=== PATIENT | female | born 1970 | race Caucasian/White ===

== ENCOUNTER 2025-07-10 22:48 | Emergency (ER) | payer MEDICAID, SELFPAY ==
[2025-07-10 22:58] VITALS: PULSE 103; RESP 18; TEMP 36.4; O2SAT 100; BMI 31.7
--- OUTSIDE RECORDS SUMMARY | 2025-07-10 22:59 | XMS_ITS | Encounter Summary ---
Author Organization [employer] [facility] Address [address] [place] [address] Care Team Providers Care Store Leader Name Role Phone Magali Camacho DO Primary Care Provider [phone] Encounter Details Date Type Department Care Team (Latest Contact Info) Description 03/29/2002 Outpatient Historical [facility] Kendall Moody MD [address] [place] [address] JOINT PAIN-L/LEG (Primary Dx) Social History Tobacco Use Types Packs/Day Years Used Date Smoking Tobacco: Never Assessed Comments Unknown Sex and Gender Information Value Date Recorded Sex Assigned at Not on file 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
--- OUTSIDE RECORDS SUMMARY | 2025-07-10 22:59 | XMS_ITS | Encounter Summary ---
Author Organization [employer] Address [address] [facility] Attn: [place] [address] Care Team Providers Care Clinical Rehabilitation Coordinator Name Role Phone Magali Camacho DO Primary Care Provider Encounter Details Date Type Department Care Team (Late st Contact Info) Description 05/07/2002 Outpatient Historical Kendall Moody MD [address] [place] [phone] Social History Tobacco Use Types Packs/Day Years Used Date Smoking Tobacco: Never Assessed Comments Unknown Sex and Gender Information Value Date Recorded Sex Assigned at Not on file 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
--- OUTSIDE RECORDS SUMMARY | 2025-07-10 22:59 | XMS_ITS | Encounter Summary ---
Author Organization [employer] Address [address] [facility] Attn: [place] [address] Care Team Providers Care Engraving Operator Name Role Phone Magali Camacho DO Primary Care Provider [phone] Encounter Details Date Type Department Care Team (Late st Contact Info) Description 05/19/2002 Outpatient Historical Kendall Moody MD [address] [place] [phone] Social History Tobacco Use Types Packs/Day Years Used Date Smoking Tobacco: Never Assessed Comments Unknown Sex and Gender Information Value Date Recorded Sex Assigned at Not on file Legal Sex Female 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
--- OUTSIDE RECORDS SUMMARY | 2025-07-10 22:59 | XMS_ITS | Encounter Summary ---
Author Organization [facility] Address [address] [place] [address] Care Team Providers Care Network Communications Engineer Name Role Phone Magali Camacho DO Primary Care Provider [phone] Encounter Details Date Type Department Care Team (Latest Contact Info) Description 03/19/2004 Outpatient Historical [facility] [address] [phone] Santi Michel MD [address] [phone] VAGINITIS NOS (Primary Dx) Social History Tobacco Use Types Packs/Day Years Used Date Smoking Tobacco: Never Assessed Comments Unknown Sex and Gender Information Value Date Recorded Sex Assigned at Not on file 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
--- OUTSIDE RECORDS SUMMARY | 2025-07-10 22:59 | XMS_ITS | Encounter Summary ---
Author Organization [facility] Address [address] [place] [address] Care Team Providers Care Physical Therapy Attendant Name Role Phone Magali Camacho DO Primary Care Provider [phone] Encounter Details Date Type Department Care Team (Latest Contact Info) Description 03/13/2004 Outpatient Historical [facility] [address] [phone] Santi Michel MD [address] [phone] MENSTRUAL DISORDER NEC (Primary Dx); FEMALE GENITAL SYMPTOMS NOS Social History Tobacco Use Types Packs/Day Years Used Date Smoking Tobacco: Never Assessed Comments Unknown Sex and Gender Information Value Date Recorded Sex Assigned at Not on file 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
--- OUTSIDE RECORDS SUMMARY | 2025-07-10 22:59 | XMS_ITS | Encounter Summary ---
Author Organization [employer] [facility] Address [address] [place] [address] Care Team Providers Care Shrinking Machine Operator Name Role Phone Magali Camacho DO Primary Care Provider Encounter Details Date Type Department Care Team (Latest Contact Info) Description 06/07/2002 Outpatient Historical [facility] Kendall Moody MD [address] [place] [address] JOINT PAIN-L/LEG (Primary Dx) Social History Tobacco Use Types Packs/Day Years Used Date Smoking Tobacco: Never Assessed Comments Unknown Sex and Gender Information Value Date Recorded Sex Assigned at Not on file Legal 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
--- OUTSIDE RECORDS SUMMARY | 2025-07-10 22:59 | XMS_ITS | Clinical Summary ---
Author Organization [employer] Address [address] [facility] [address] [place]: [place] [address] Care Team Providers Care Sports Leadership Instructor Name Role Phone Magali Camacho Primary Care Provider Allergies No known active allergies Medications ALPRAZolam (XANAX) 0.25 mg tabletIndicatio ns:Anxiety Take 1 Tablet (0.25 mg) by mouth nightly as needed for Anxiety Fax to [place]. 30 Tablet 0 12/15/2018 Active cloNIDine HCL (CATAPRES) 0.1 mg tabletIndicatio ns:Essential hypertension,Op ioid abuse Take 1 Tablet (0.1 mg) by mouth 3 times daily. 90 Tablet 1 12/15/2018 Active Active Problems Problem Noted Date Diagnosed Date Essential hypertension 12/15/2018 Anxiety 12/15/2018 Opioid abuse 12/15/2018 Family History Relation Name Status Comments Father Alive Mother Alive Social History Tobacco Use Types Packs/Day Years Used Date Smoking Tobacco: Every Day Cigarettes Smokeless Tobacco: Never Alcohol Use Standard Drinks/Week Comments No 0 (1 standard drink = 0.6 oz pur e alcohol) Comments Unknown Sex and Gender Information Value Date Recorded Sex Assigned at Not on file Legal Sex Female 12:12 AM MANAGER SERVICE DESK Gender Identity Not on file Sexual Orientation Not on file Last Filed Vital Signs Vital Sign Reading Time Taken Comments Blood Pressure 168/80 12/15/2018 1:44 PM CDT Pulse 113 12/15/2018 1:44 PM CDT Temperature 37.2 C (99 F) 12/15/2018 1:44 PM CDT Respiratory Rate 18 12/15/2018 1:44 PM CDT Oxygen Saturation - - Inhaled Oxygen Concentration - - Weight 78.4 kg (172 lb 12.8 oz) 12/15/2018 1:44 PM CDT Height 162.6 cm (5' 4 ) 12/15/2018 1:44 PM CDT Body Mass Index 29.66 12/15/2018 1:44 PM CDT Plan of Treatment Health Maintenance Due Date Last Done Comments DTAP/TDAP/TD VACCINES (1 - Tdap) 1988 HEPATITIS B VACCINES (1 of 3 - 19+ 3-dose series) 07/24 HPV/Cotest (21-29) 1990 CERVICAL CANCER SCREENING 1999 HPV/Cotest (30-65) 1999 PAP SMEAR 1999 BREAST CANCER SCREENING 2009 COLORECTAL SCREENING 2014 Colorectal Cancer Screening 2014 FIT-DNA Q 3 years 2014 FIT/FOBT Q 1 year 2014 Flex Sig/CT Colonography Q 5 years 2014 ZOSTER VACCINE (1 of 2) 2019 INFLUENZA VACCINE (#1) 2025 Care Teams Sports Leadership Instructor Relationship Specialty Start Date End Date Magali Camacho DO [address] [place] [phone] PCP - General Family Practice 12/15/18
--- OUTSIDE RECORDS SUMMARY | 2025-07-10 22:59 | XMS_ITS | Clinical Summary ---
Author Organization [facility] Address [address] [facility] [address] Care Team Providers Care Administrative Resident Name Role Phone Magali Camacho Primary Care Provider Allergies No known active allergies Medications cloNIDine HCl (CATAPRES) 0.1 mg tabletIndicatio ns:Essential hypertension,Op ioid abuse Take 1 Tablet (0.1 mg) by mouth 3 times daily. 90 Tablet 1 12/15/2018 Active ALPRAZolam (XANAX) 0.25 mg tabletIndicatio ns:Anxiety Take 1 Tablet (0.25 mg) by mouth nightly as needed for Anxiety Fax to [place]. 30 Tablet 12/15/2018 Active Active Problems Problem Noted Date Diagnosed Date Essential hypertension 12/15/2018 Anxiety 12/15/2018 Opioid abuse 12/15/2018 Family History Relation Name Status Comments Father Alive Mother Alive Social History Tobacco Use Types Packs/Day Years Used Date Smoking Tobacco: Every Day Cigarettes Smokeless Tobacco: Never Tobacco Cessation:Ready to Q uit: No Alcohol Use Standard Drinks/Week Comments No 0 (1 standard drink = 0.6 oz pur e alcohol) Comments No Sex and Gender Information Value Date Recorded Sex Assigned at Not on file Legal Sex Female 6:34 AM MANAGER HOSPITALITY Gender Identity Not on file Sexual Orientation Not on file Last Filed Vital Signs Vital Sign Reading Time Taken Comments Blood Pressure 168/80 12/15/2018 1:44 PM CDT Pulse 113 12/15/2018 1:44 PM CDT Temperature 37.2 C (99 F) 12/15/2018 1:44 PM CDT Respiratory Rate 18 12/15/2018 1:44 PM CDT Oxygen Saturation 98% 12/15/2018 1:44 PM CDT Inhaled Oxygen Concentration - - Weight 78.4 kg (172 lb 12.8 oz) 12/15/2018 1:44 PM CDT Height 162.6 cm (5' 4 ) 12/15/2018 1:44 PM CDT Body Mass Index 29.66 12/15/2018 1:44 PM CDT Plan of Treatment Health Maintenance Due Date Last Done Comments DTAP/TDAP/TD VACCINES (1 - Tdap) 1988 HEPATITIS B VACCINES (1 of 3 - 19+ 3-dose series) 07/24 Preventative Visit-Managed Medicaid 1988 HPV/Cotest (21-29) 1990 CERVICAL CANCER SCREENING 1999 HPV/Cotest (30-65) 1999 PAP SMEAR 1999 BREAST CANCER SCREENING 2009 COLORECTAL SCREENING 2014 Colorectal Cancer Screening 2014 FIT-DNA Q 3 years 2014 FIT/FOBT Q 1 year 2014 Flex Sig/CT Colonography Q 5 years 08/16/20142001 ZOSTER VACCINE (1 of 2) 2019 INFLUENZA VACCINE (#1) 2025 Insurance [facility] MEDICAID Care Teams Administrative Resident Relationship Specialty Start Date End Date Magali Camacho DO [address] [place] [address] PCP - General Family Practice 12/15/18
--- OUTSIDE RECORDS SUMMARY | 2025-07-10 22:59 | XMS_ITS | Encounter Summary ---
Author Organization [facility] Address [address] [place] [address] Care Team Providers Care Golf Course Designer Name Role Phone Magali Camacho DO Primary Care Provider Encounter Details Date Type Department Care Team (Latest Contact Info) Description 03/13/2004 Outpatient Historical [facility] Medicine [address] [phone] Santi Michel MD [address] [phone] FEMALE GENITAL SYMPTOMS NOS (Primary Dx) Social History Tobacco Use Types Packs/Day Years Used Date Smoking Tobacco: Never Assessed Comments Unknown Sex and Gender Information Value Date Recorded Sex Assigned at Not on file Legal 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
--- OUTSIDE RECORDS SUMMARY | 2025-07-10 22:59 | XMS_ITS | Encounter Summary ---
Author Organization [employer] [facility] Address [address] [place] [address] Care Team Providers Care Publishing Specialist Name Role Phone Magali Camacho DO Primary Care Provider Encounter Details Date Type Department Care Team (Latest Contact Info) Description 04/26/2002 Outpatient Historical [facility] Kendall Moody MD [address] [place] [address] JOINT PAIN-L/LEG (Primary Dx) Social History Tobacco Use Types Packs/Day Years Used Date Smoking Tobacco: Never Assessed Comments Unknown Sex and Gender Information Value Date Recorded Sex Assigned at Not on file Legal Sex Female 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
--- OUTSIDE RECORDS SUMMARY | 2025-07-10 22:59 | XMS_ITS | Encounter Summary ---
Author Organization [facility] Address [address] [place] [address] Care Team Providers Care Washing Machine Installer Name Role Phone Magali Camacho DO Primary Care Provider Encounter Details Date Type Department Care Team (Latest Contact Info) Description 06/29/2002 Outpatient Historical [facility] Family Medicine [address] [place] [phone] Pete Nagy MD Rectal/anal hemorrhage (Primary Dx) Social History Tobacco Use Types Packs/Day Years Used Date Smoking Tobacco: Never Assessed Comments Unknown Sex and Gender Information Value Date Recorded Sex Assigned at Not on file 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
--- OUTSIDE RECORDS SUMMARY | 2025-07-10 22:59 | XMS_ITS | Encounter Summary ---
Author Organization [facility] Address [address] [place] [address] Care Team Providers Care Furnace And Wash Equipment Operator Name Role Phone Magali Camacho DO Primary Care Provider Encounter Details Date Type Department Care Team (Latest Contact Info) Description 03/14/2004 Outpatient Historical [facility] Services [address] [place] [phone] Santi Michel MD [address] [place] [phone] OVARIAN CYST NEC/NOS (Primary Dx) Social History Tobacco Use Types Packs/Day Years Used Date Smoking Tobacco: Never Assessed Comments Unknown Sex and Gender Information Value Date Recorded Sex Assigned at Not on file Legal Sex Female 6:34 AM WAREHOUSE DISTRIBUTION MANAGER Gender Identity Not on file Sexual Orientation Not on file documented as of this encounter Plan of Treatment Not on file documented as of this encounter Visit Diagnoses Diagnosis Other and unspecified ovarian cyst- Primary documented in this encounter Care Teams Furnace And Wash Equipment Operator Relationship Specialty Start Date End Date Magali Camacho DO [address] [place] [address] PCP - General Family Practice 12/15/18 documented as of this encounter
--- OUTSIDE RECORDS SUMMARY | 2025-07-10 22:59 | XMS_ITS | Encounter Summary ---
Author Organization [facility] Address [address] [place] [address] Care Team Providers Care Fell Cutter Name Role Phone Magali Camacho DO Primary Care Provider Encounter Details Date Type Department Care Team (Latest Contact Info) Description 06/30/2002 Outpatient Historical [facility] Family Medicine [address] [place] [phone] Pete Nagy MD MELENA, BLOOD IN STOOL (Primary Dx) Social History Tobacco Use Types Packs/Day Years Used Date Smoking Tobacco: Never Assessed Comments Unknown Sex and Gender Information Value Date Recorded Sex Assigned at Not on file Legal Sex Female 6:34 AM PYTHON DEVELOPER Gender Identity Not on file Sexual Orientation Not on file documented as of this encounter Plan of Treatment Not on file documented as of this encounter Visit Diagnoses Diagnosis Blood in stool- Primary documented in this encounter Care Teams Fell Cutter Relationship Specialty Start Date End Date Magali Camacho DO [address] [place] [phone] PCP - General Family Practice 12/15/18 documented as of this encounter
--- NOTE | 2025-07-10 23:17 | CTR_ITS ---
PROCEDURE INFORMATION: Exam: CT Abdomen And Pelvis With Contrast Exam date and time: 07/11/2025 12:36 AM Age: 54 years old Clinical indication: Abdominal pain; Localized; Left lower quadrant (llq); Prior surgery; Surgery date: 6+ months; Surgery type: Breast augmentation. Gb. Hysterectomy; C/O llq pain; Additional info: Llq pain, felt a pop, diarrhea TECHNIQUE: Imaging protocol: Computed tomography of the abdomen and pelvis with contrast. Radiation optimization: All CT scans at this facility use at least one of these dose optimization techniques: automated exposure control; mA and/or kV adjustment per patient size (includes targeted exams where dose is matched to clinical indication); or iterative reconstruction. Contrast material: OMNI 350; Contrast volume: 100 ml; Contrast route: INTRAVENOUS (IV); COMPARISON: No relevant prior studies available. RADIATION DOSE METRICS: Total DLP (mGy-cm): 780.33 FINDINGS: Lung bases: The lung bases are clear. Bilateral breast implants are noted. Liver: Normal. No mass. Gallbladder and biliary ducts: Status post cholecystectomy. No ductal dilation. Pancreas: Normal. No ductal dilation. Spleen: Normal. No splenomegaly. Adrenal glands: There is an isodense 1.2 cm left adrenal nodule. No mass. Kidneys and ureters: Normal. No hydronephrosis. Stomach and bowel: There appears to be an anastomosis at the approximate level of the rectosigmoid junction. There is no evidence of bowel obstruction. There is no evidence of acute inflammation. Appendix: No evidence of appendicitis. A normal-appearing appendix is identified. Intraperitoneal space: Unremarkable. No free air. No significant fluid collection. Vasculature: Mild calcific plaque along the course of the distal abdominal aorta is noted. No abdominal aortic aneurysm. Lymph nodes: Unremarkable. No enlarged lymph nodes. Urinary bladder: Unremarkable as visualized. Reproductive: The uterus is absent. No significant adnexal abnormality is noted. Bones/joints: Degenerative disc disease is noted primarily at L5-S1. No acute fracture. Soft tissues: Unremarkable. CT/CT abdomen pelvis w con* [id number] IMPRESSION: 1. There is no evidence of acute abdominopelvic abnormality. 2. There is an isodense 1.2 cm left adrenal nodule. If the patient has no cancer history, then consider follow-up non-emergent adrenal CT or adrenal MRI examination. If the patient has a history of cancer, then consider biopsy or PET/CT. (Reference: Catarina) References: Catarina RIBEIRO, et al. Management of Incidental Adrenal Masses: A White Paper of the ACR Incidental Findings Committee. J Am Dameon Radiol. 2017;14(8):8956-4950. 3. Incidental observations are detailed above.
[2025-07-10 23:41] LABS: Hematocrit 40.6 % (36-47); Hemoglobin 14.10 g/dL (11.27-16.99); Mean Corpuscular HGB Conc 34.7 g/dL (30-55); Mean Corpuscular Hemoglobin 30.7 pg (27-33); Mean Corpuscular Volume 88.3 fl (85-98); Nucleated Red Blood Cells % 0 %; Platelet Count 246 10^3/cmm (157-399); Red Blood Count 4.60 10^6/uL (3.85-5.65); White Blood Count 9.35 10^3/uL (3.29-11.43)
[2025-07-10 23:49] VITALS: RESP 16; O2SAT 95
[2025-07-10] MEDS: ondansetron 2 mg/ML SDV 2 mL 4 MG IVP (23:49)
[2025-07-10] MEDS: morphine 4 mg/mL SDV 1 mL IVP (23:49)
--- NOTE | 2025-07-10 23:51 | ED_ITS ---
HPI - Back Pain/Injury 2 General: Chief Complaint: Back Pain/Injury Stated Complaint: Left Side Pain Time Seen by Provider: 07/10/25 22:50 Source: patient Mode of arrival: ambulatory Limitations: no limitations History of Present Illness: Patient is a 54-year-old female who presents the emergency department complaining of left lower quadrant abdominal pain. She was seen at [facility] earlier this morning, for left lower back pain that radiated around towards her left hip, she states that she received a CT of her lumbar spine there as well as urinalysis but was told both of these tests were normal and she was discharged home. She states that while at home she felt a sudden pop in her left lower quadrant that significantly radiated into her left lower back, and has been having diarrhea as well. No bloody stools. No fevers but she has reported chills. No urinary symptoms. No vomiting but she also notes nausea. She received Toradol at previous ER, states this did not help. Does report a history of degenerative disc disease in her back, notes that this feels different. Her vitals are stable at this time, she is in acute distress from pain. MD elicited complaint: other (LLQ) Onset (ago): day(s) Timing: constant Severity: severe Quality: burning Associated symptoms: Reports abdominal pain and nausea; Deny chills, dysuria, fever(s), urinary urgency or vomiting Related Data Previous Rx's ?Medication ?Instructions ?Recorded hydrocodone 7.5 mg-acetaminophen 1 tab PO Q8H PRN pain #15 tabs 07/11/25 325 mg tablet ondansetron 4 mg disintegrating 4 mg PO TID PRN nausea and 07/11/25 tablet vomiting #30 tabs Allergies Allergy/AdvReac Type Severity Reaction Status Date / Time No Known Allergies Allergy Verified 07/10/25 23:04 Review of Systems 2 General: Reports: 10 or more systems reviewed and unremarkable except in HPI and below Const: Denies: fever(s), chills, change in appetite, change in weight or diaphoresis ENMT: Denies: throat pain or hoarseness Card: Denies: chest pain, palpitations or lightheadedness Resp: Denies: dyspnea, productive cough or wheezing GI: Reports: abdominal pain, nausea and diarrhea; Denies: vomiting, constipation, bloating, change in stool character or hematochezia : Denies: flank pain, difficulty voiding, dysuria, urinary frequency or urinary urgency Musc: Reports: back pain; Denies: neck pain Skin/Breast: Denies: rash or new lesions Neuro: Denies: headache(s) or dizziness Physical Exam 2 Const: COMMON NORMALS: no acute distress, average body habitus, patient oriented x3, no limitations, healthy appearing, alert and well nourished G ENERAL APPEARANCE: cooperative and comfortable ORIENTATION/CONSCIOUSNESS: Yes awake Neck/C-Spine: COMMON NORMALS: full ROM, supple and no meningeal signs Resp: COMMON NORMALS: normal respiratory effort, No retractions, No use of accessory muscles and clear to auscultation bilaterally AUSCULTATION: clear to auscultation bilaterally, no crackles, no rales, no rhonchi and no wheezes Cardio: COMMON NORMALS: regular rate, regular rhythm, No gallops present (Cardio), No clicks present (Cardio), No murmurs present (Cardio), No rub (Cardio) and Peripheral pulses 2+ throughout RATE: regular rate RHYTHM: r egular rhythm PERIPHERAL PULSES: Peripheral pulses 2+ throughout GI: COMMON NORMALS: Normal to inspection, nondistended, normoactive bowel sounds present, Soft to palpation, No hepatosplenomegaly present and no masses AUSCULTATION: Yes normoactive bowel sounds PALPATION: Yes Soft to palpation, Yes Tenderness to palpation present (GI) Details: LLQ, No Guarding due to palpation present (GI), No Rigid due to palpation and Yes No hepatosplenomegaly present RECTAL EXAM: deferred : COMMON NORMALS: Yes no CVA tenderness BLADDER/KIDNEY EXAM: Yes no CVA tenderness Back/Pelvis: COMMON NORMALS: no CVA tenderness, thoracic and lumbar spine normal to inspection, no thoracic nor lumbar tenderness, thoraco-lumbar ROM normal and straight leg raise negative bilaterally Extremity: COMMON NORMALS: normal to inspection and full ROM Neuro: COMMON NORMALS: patient oriented x3, moves all extremities, no focal motor deficits and no sensory deficits noted SENSORIUM/ORIENTATION: Yes alert MENINGEAL SIGNS: Yes no meningeal signs Psych: COMMON NORMALS: mental status grossly normal, cooperative and speech normal SPEECH: Yes normal speech Skin: COMMON NORMALS: no rashes or lesions noted GENERAL SKIN EXAM: no rashes or lesions noted Course 2 Vital Signs: Vital signs: Vital Signs Temperature 97.6 F 07/10/25 22:58 Pulse Rate 103 H 07/10/25 22:58 Respiratory Rate 16 07/10/25 23:49 Pulse Oximetry 95 07/10/25 23:49 MDM - Back Pain/Injury Medical Decision Making Patient presents for evaluation of left lower quadrant abdominal pain. She was seen at [facility] earlier this morning for left lower back pain, states discharged home after normal lumbar spine CT and urinalysis, and while she was at home she felt a severe pop and has had associated diarrhea. Clinically nontoxic on exam, tender to palpation of left lower quadrant but overall stable vitals. Lab work is all unremarkable, urinalysis does not show any infection. CT abdomen and pelvis does not show any signs of diverticulitis or other explanations for her acute abdominal pelvic pain. Suspect benign etiology, she does not have primary care so we will establish her with 1 for follow-up. Did control her pain here in the ED and ultimately she feels comfortable with discharge home as her symptoms are improved. Labs 07/10/25 23:34 07/10/25 23:34 Radiology Impressions Abdomen/Pelvis CT 07/10/25 23:17 IMPRESSION: 1. There is no evidence of acute abdominopelvic abnormality. 2. There is an isodense 1.2 cm left adrenal nodule. If the patient has no cancer history, then consider follow-up non-emergent adrenal CT or adrenal MRI examination. If the patient has a history of cancer, then consider biopsy or PET/CT. (Reference: Catarina) References: Catarina RIBEIRO, et al. Management of Incidental Adrenal Masses: A White Paper of the ACR Incidental Findings Committee. J Am Dameon Radiol. 2017;14(8):5443-3003. 3. Incidental observations are detailed above. Laboratory Results WBC 9.35 10^3/uL (3.29-11.43) 07/10/25 23:34 RBC 4.60 10^6/uL (3.85-5.65) 07/10/25 23:34 Hgb 14.10 g/dL (11.27-16.99) 07/10/25 23:34 Hct 40.6 % (36-47) 07/10/25 23:34 MCV 88.3 fl (85-98) 07/10/25 23:34 MCH 30.7 pg (27-33) 07/10/25 23:34 MCHC 34.7 g/dL (30-55) 07/10/25 23:34 RDW 13.1 % (12.1-15.1) 07/10/25 23:34 Plt Count 246 10^3/cmm (157-399) 07/10/25 23:34 MPV 10.5 fL (7.4-10.4) H 07/10/25 23:34 Neut % (Auto) 77.5 % 07/10/25 23:34 Lymph % (Auto) 14.8 % 07/10/25 23:34 [facility] % (Auto) 4.6 % 07/10/25 23:34 Eos % (Auto) 2.4 % 07/10/25 23:34 Baso % (Auto) 0.5 % 07/10/25 23:34 Neut # (Auto) 7.25 10^3/uL (1.8-7.7) 07/10/25 23:34 Lymph # (Auto) 1.4 10^3/uL (0.8-4.8) 07/10/25 23:34 [facility] # (Auto) 0.4 10^3/uL (0.2-0.9) 07/10/25 23:34 Eos # (Auto) 0.2 10^3/uL (0.0-0.8) 07/10/25 23:34 Baso # (Auto) 0.1 10^3/uL (0.0-0.1) 07/10/25 23:34 Nucleated RBC % (auto) 0 % 07/10/25 23:34 Nucleated RBCs # 0.0 /100WBC 07/10/25 23:34 Sodium 136 mmol/L (136-145) 07/10/25 23:34 Potassium 3.5 mmol/L (3.5-5.1) 07/10/25 23:34 Chloride 100 mmol/L (98-107) 07/10/25 23:34 Carbon Dioxide 23 mmol/L (22-29) 07/10/25 23:34 Anion Gap 16.5 (5-19) 07/10/25 23:34 BUN 7 mg/dL (6-20) 07/10/25 23:34 Creatinine 0.4 mg/dL (0.5-0.9) L 07/10/25 23:34 GFR Calculation 165.7 mL/min (90-130) H 07/10/25 23:34 Glucose 111 mg/dL (65-115) 07/10/25 23:34 Calculated Osmolality 281 mOsm/kg (285-295) L 07/10/25 23:34 Calcium 9.3 mg/dL (8.5-10.5) 07/10/25 23:34 Total Bilirubin 0.4 mg/dL (0.15-1.2) 07/10/25 23:34 AST 14 U/L (0-32) 07/10/25 23:34 ALT 14 U/L (0-33) 07/10/25 23:34 Alkaline Phosphatase 96 U/L (35-105) 07/10/25 23:34 Total Protein 7.1 g/dL (6.6-8.7) 07/10/25 23:34 Albumin 4.1 g/dL (3.5-5.2) 07/10/25 23:34 Globulin 3.0 g/dL (1.3-4.6) 07/10/25 23:34 Lipase 25 U/L (13-60) 07/10/25 23:34 Urine Color Yellow (Yellow) 07/11/25 00:00 Urine Appearance Clear (CLEAR) 07/11/25 00:00 Urine pH 6.0 (5-7) 07/11/25 00:00 Ur Specific [place] 1.015 (1.005-1.030) 07/11/25 00:00 Urine Protein Negative (Negative) 07/11/25 00:00 Urine Glucose (UA) Negative (Normal) 07/11/25 00:00 Urine Ketones 2+ (Negative) H 07/11/25 00:00 Urine Blood Negative (Negative) 07/11/25 00:00 Urine Nitrate Negative (Negative) 07/11/25 00:00 Urine Bilirubin Negative (Negative) 07/11/25 00:00 Urine Urobilinogen 1.0 mg/dL (Negative) 07/11/25 00:00 Ur Leukocyte Esterase Negative (Negative) 07/11/25 00:00 Amorphous Sediment Not Reportable 07/11/25 00:00 All radiology interpretation(s) finalized by discharge Discharge Plan Discharge Patient Disposition: Home Clinical Impression: Abdominal pain, left lower quadrant, Lumbar back pain Condition: Stable Prescriptions: New hydrocodone-acetaminophen 7.5-325 mg tablet 1 tab PO Q8H PRN (Reason: pain) Qty: 15 0RF ondansetron 4 mg tablet,disintegrating 4 mg PO TID PRN (Reason: nausea and vomiting) Qty: 30 0RF Discharge Orders: Discharge ED (Routine); Ordered 07/11/25 Ordered By: Christopher Singer Patient Instructions: Patient Portal & Caleb Instructions Activity Restrictions/Additional Instructions: Low Back Pain Discharge You were seen today for pain in your left lower back and left lower abdomen. All tests and scans showed no serious or urgent problems. Your pain is most likely due to a benign cause and should improve over time. What to expect: Most people with new back pain get better within a few weeks, even without special treatment. It is very unlikely that your pain is caused by anything serious. What you can do at home: - Stay active: Try to keep moving and do your usual activities as much as you can, even if you have some pain. Avoid staying in bed for long periods. - Use heat: A heating pad or warm pack may help relieve pain. Be careful not to burn your skin. - Pain relief: If needed, you may use [id number]-xol-zhxygyc medicines like ibuprofen (Advil, Motrin) or naproxen (Aleve), unless you have been told not to for other health reasons. These can help with pain, but use the lowest dose for the shortest time needed. - Gentle movement: Light stretching or walking can help. There is no single best exercise, so choose what feels comfortable. What to avoid: - Do not stay in bed or avoid all activity. - Do not use strong pain medicines (like opioids) unless specifically prescribed, as they are not usually needed and can have risks. Follow-up: - Please make an appointment with your primary care provider for reevaluation as discussed. - If your pain does not improve in 4-8 weeks, or if it gets worse, your doctor may recommend other treatments or refer you to a specialist. Return to the emergency department or call your doctor right away if you have: - New numbness, tingling, or weakness in your legs - Loss of bladder or bowel control - Fever, chills, or unexplained weight loss - Severe, worsening pain Remember: Most back pain is not dangerous and gets better with time. Staying active and using simple self-care can help you recover faster. Print Language: Slovenian Coding Level of Care Code ED Java Front End Web Developer for Terrance Gómez
[2025-07-10 23:59] LABS: Alanine Aminotransferase 14 U/L (0-33); Albumin Level 4.1 g/dL (3.5-5.2); Alkaline Phosphatase 96 U/L (35-105); Anion Gap 16.5 (5-19); Aspartate Amino Transferase 14 U/L (0-32); Blood Urea Nitrogen 7 mg/dL (6-20); Calcium 9.3 mg/dL (8.5-10.5); Carbon Dioxide 23 mmol/L (22-29); Chloride 100 mmol/L (98-107); Creatinine Clr Calc Pharmacy 166.5413; Globulin 3.0 g/dL (1.3-4.6); Glucose 111 mg/dL (65-115); Lipase 25 U/L (13-60); Osmolality Calculated 281 mOsm/kg (285-295); Potassium 3.5 mmol/L (3.5-5.1); Sodium 136 mmol/L (136-145); Total Protein 7.1 g/dL (6.6-8.7)
[2025-07-11 00:10] LABS: Add Urine Microscopic? NO
[2025-07-11 00:13] LABS: Glucose Urine UA Negative (Normal); Nitrate Urine Negative (Negative); Specific Gravity, Urine 1.015 (1.005-1.030)
[2025-07-11 00:15] LABS: Charge for UA Resulting for Rev
[2025-07-11] MEDS: iohexol 350 mg/mL 500 mL Btl (per mL) IV (00:39)
[2025-07-11] MEDS: HYDROmorphone 0.5 MG/0.5 ML INJ 1 MG IVP (01:08)
[2025-07-11 01:55] VITALS: BP 175/88; PULSE 100; RESP 16; O2SAT 97
--- NOTE | 2025-07-11 15:44 | DCPLANNER ---
messaged rafa flores to establish pcp
== END 2025-07-11 02:00 | disposition home or self-care (01) ==
PROVIDERS: Emergency Provider Physician Assistant
DX: R10.32 Left lower quadrant pain (principal); M54.50 Low back pain, unspecified
CPT/HCPCS: 36415; 74177; 80053; 81003; 83690; 85025; 96374; 96375; 99285; J1171; J2270; J2405

== ENCOUNTER → 2025-07-15 14:24 | Outpatient (BNVA) | payer MEDICAID, SELFPAY | PROVIDERS: PCP Nurse Practitioner; Referring Provider Nurse Practitioner; Visit Provider Nurse Practitioner | DX: M48.07 Spinal stenosis, lumbosacral region (principal); M47.894 Other spondylosis, thoracic region | CPT/HCPCS: 72100; 73502 ==

== ENCOUNTER 2025-07-26 13:20 | Outpatient (CLI) | payer MEDICAID, SELFPAY ==
--- NOTE | 2025-07-26 13:45 | MR_ITS ---
WS: [id number] MRI ADRENALS WITH AND WITHOUT CONTRAST. COMPARISON: CT 07/11/2025 Multiplanar, multisequence imaging is performed with and without contrast. Sagittal and axial T1 fat sat sequences post-MultiHance 19 cc IV. There is a very small nodule associated with the LEFT adrenal gland that was described on 07/11/2015. Adrenal nodule measures 10 mm. On the out of phase imaging this nodule does appear to lose signal suggesting an adenoma. There is enhancement of this nodule with washout. Normal RIGHT adrenal gland. Lobulated cyst measuring 8 mm upper pole LEFT kidney. No solid mass within either kidney. Prior cholecystectomy. Normal size liver. Focal fatty sparing with loss of signal on the out of phase sequence along the falciform ligament. No intrahepatic duct dilatation. Normal pancreas. No adrenal mass. No ascites. No adenopathy in the abdomen. Bilateral breast implants are identified. Normal aorta. MR/MR adrenals wo/w con [id number] IMPRESSION: 1. 10 mm LEFT adrenal mass is most consistent with a benign adenoma. 2. Prior cholecystectomy. 3. Focal fatty sparing along the falciform ligament.
[2025-07-26] MEDS: gadobenate dimeglumine 20 mL vial 14 ML IV (14:17)
== END 2025-07-26 13:21 | disposition home or self-care (01) ==
PROVIDERS: PCP Nurse Practitioner; Visit Provider Nurse Practitioner
DX: E27.9 Disorder of adrenal gland, unspecified (principal); N28.1 Cyst of kidney, acquired; Z90.49 Acquired absence of other specified parts of digestive tract
CPT/HCPCS: 74183

== ENCOUNTER 2025-08-19 14:54 | Outpatient (CLI) | payer MEDICAID, SELFPAY ==
--- NOTE | 2025-08-19 15:00 | MM_ITS ---
WS: [id number] BILATERAL 3D TOMOSYNTHESIS DIGITAL SCREENING MAMMOGRAPHY WITH CAD CLINICAL INFORMATION: ANNUAL SCREEN HISTORY: Screening mammogram. No current complaints. COMPARISON: 2017 TECHNIQUE: Bilateral CC and MLO views. FINDINGS: Bilateral subpectoral implants appear intact. The breasts are composed of heterogeneous fibroglandular density tissue, which can limit the detection of small underlying mass lesions. No suspicious mass, asymmetry, calcifications, or architectural distortion. No evidence of malignancy. Lucent centered calcifications RIGHT breast. MM/MM [facility] tomosynthesis [id number] IMPRESSION: DENSITY: There are scattered areas of fibroglandular density. BI-RADS: 2 - Benign. FOLLOW UP: 1 Year Follow-up Recommend return to annual screening mammography.
--- NOTE | 2025-08-19 15:30 | USR_ITS ---
PROCEDURE INFORMATION: Exam: US Pelvis, Transvaginal, Non-Obstetric Exam date and time: 08/19/2025 3:31 PM Age: 55 years old Clinical indication: Pelvic pain; Additional Info: R10.32 - Left lower quadrant pain TECHNIQUE: Imaging protocol: Real-time transvaginal pelvic (non-obstetric) ultrasound with image documentation. Transvaginal imaging was used for better evaluation of the endometrium, adnexa, and/or cervix. COMPARISON: CT abdomen pelvis w con* [id number] 07/11/2025 12:36 AM FINDINGS: Limitations: Study somewhat limited due to bowel activity. Adnexal structures could not be identified. Uterus: Prior hysterectomy. Cervical cuff is grossly normal. Right ovary/adnexa: The right ovary is not visualized. Left ovary/adnexa: The left ovary is not visualized. Urinary bladder: Urinary bladder is not evaluated. Intraperitoneal space: No free fluid noted. US/US transvaginal [id number] IMPRESSION: No pelvic masses or acute findings.
== END 2025-08-19 14:55 | disposition home or self-care (01) ==
PROVIDERS: PCP Nurse Practitioner; Visit Provider Nurse Practitioner
DX: Z12.31 Encounter for screening mammogram for malignant neoplasm of breast (principal); R92.333 Mammographic heterogeneous density, bilateral breasts; R92.323 Mammographic fibroglandular density, bilateral breasts; R92.1 Mammographic calcification found on diagnostic imaging of breast; Z90.710 Acquired absence of both cervix and uterus
CPT/HCPCS: 76830; 77063; 77067